=== PATIENT | female | born 2000 | race Asian ===

== ENCOUNTER 2020-06-23 21:43 | Emergency (ER) | payer BC ==
[~2020-06-23] VITALS: Ht 154.9 cm; Wt 59.0 kg
[2020-06-23 21:50] VITALS: Ht 154.9 cm; Wt 59.0 kg
[2020-06-23 23:28] LABS: BASOPHIL % 0.1 % (0-2); PLATELET COUNT 336 x10^3mcL (130-400); RED CELL DISTRIBUTION WIDTH 12.9 % (11.5-14.5)
[2020-06-23 23:40] LABS: CALCIUM 9.3 mg/dL (8.5-10.1); CARBON DIOXIDE 25.3 mmol/L (21-32); CHLORIDE SERUM 102 mmol/L (98-107); CREATININE SERUM 0.9 mg/dL (0.6-1.0); GFR1 > 60 mL/min; GLUCOSE SERUM 109 mg/dL (74-106); POTASSIUM SERUM 3.6 mmol/L (3.5-5.1); SODIUM SERUM 137 mmol/L (136-145)
[2020-06-23 23:44] LABS: ALBUMIN 4.6 g/dL (3.4-5.0); ALKALINE PHOSPHATASE 58 U/L (46-116); ALT/SGPT 18 U/L (14-59); AST/SGOT 17 U/L (15-37); BILIRUBIN TOTAL 0.4 mg/dL (0.20-1.00); LIPASE 105 IU/L (73-393)
[2020-06-23 23:48] LABS: TOTAL PROTEIN, SERUM 8.9 g/dL (6.4-8.2)
[2020-06-24 00:29] VITALS: BP 107/65
== END 2020-06-24 00:29 | disposition home or self-care (01) ==
LOC: ED 21:43
PROVIDERS: Emergency Medicine
DX: K52.9 Noninfective gastroenteritis and colitis, unspecified (principal); Z20.828 Contact with and (suspected) exposure to other viral communicable diseases
CPT/HCPCS: J2405; J7030; U0003-CS